=== PATIENT | female | born 1990 | race Caucasian/White ===

== ENCOUNTER → 2022-01-15 13:07 | Outpatient (CLI) | payer OTHER, SELFPAY ==
[2022-01-15 14:41] LABS: Add Manual Diff / Slide Review NO; Basophils Absolute Auto 0 /uL (0-100); Basophils Percent Auto 0.6 % (0-2); Eosinophils Absolute Auto 100 /uL (0-450); Eosinophils Percent Auto 0.9 % (2-4); Hematocrit 36.7 % (36-46); Hemoglobin 12.4 g/dL (12.0-16.0); Lymphocytes Absolute Auto 1400 /uL (1100-4500); Lymphocytes Percent Auto 22.7 % (25-40); Mean Corpuscular HGB Conc 33.7 % (30-36); Mean Corpuscular Hemoglobin 29.4 PG (26-34); Mean Corpuscular Volume 87.3 fL (80-100); Monocytes Absolute Auto 300 /uL (0-900); Monocytes Percent Auto 5.7 % (3-14); Neutrophils Absolute Auto 4300 /uL (1500-7000); Neutrophils Percent Auto 70.1 % (50-75); Platelet Count 166 X10^3/uL (150-400); Red Cell Distribution Width 12.3 % (11.6-14.8); White Blood Cell Count 6.1 X10^3/uL (4.5-11.0)
[2022-01-16 07:39] LABS: RPR Screen Non Reactive (Non Reactive); Varicella IgG Antibody 458 index (Immune >165)
[2022-01-17 19:24] LABS: HIV 1 & 2 Ab/Ag 4th Gen Combo NEGATIVE (NEGATIVE); Hep C Virus Ab w/Reflex Quant NEGATIVE s/c (NEGATIVE); Hepatitis B Surface Antigen NEGATIVE s/c (NEGATIVE)
== END ==
PROVIDERS: Referring Provider Obstetrics & Gynecology; Visit Provider Obstetrics & Gynecology
DX: Z34.81 Encounter for supervision of other normal pregnancy, first trimester (principal)
CPT/HCPCS: 36415; 80055; 86787; 86803; 86850; 86900; 86901; 87389

== ENCOUNTER → 2022-02-07 15:21 | Outpatient (CLI) | payer OTHER, SELFPAY ==
[2022-02-07 19:03] LABS: Appearance Urine UA CLEAR; Bilirubin Urine UA NEGATIVE (NEGATIVE); Color Urine UA YELLOW; Glucose Urine UA NEGATIVE (Negative); Ketones Urine UA NEGATIVE (NEGATIVE); Leukocyte Esterase Urine UA NEGATIVE (NEGATIVE); Nitrite Urine UA NEGATIVE (Negative); Occult Blood Urine UA NEGATIVE (Negative); Protein Urine UA NEGATIVE (Negative); Specific Gravity Urine UA 1.015 (1.000-1.035); Urobilinogen Urine UA 0.2 E.U./dL (0.2)
== END ==
PROVIDERS: Visit Provider Obstetrics & Gynecology
DX: Z34.81 Encounter for supervision of other normal pregnancy, first trimester (principal); Z3A.13 13 weeks gestation of pregnancy
CPT/HCPCS: 81003; 87086

== ENCOUNTER → 2022-03-04 14:28 | Outpatient (CLI) | payer OTHER, SELFPAY ==
[2022-03-04 21:35] LABS: Urine N gonorrhoeae NOT DETECTED
[2022-03-04 22:09] LABS: Urine Chlamydia NOT DETECTED
== END ==
PROVIDERS: Visit Provider Physician Assistant Medical
DX: Z34.82 Encounter for supervision of other normal pregnancy, second trimester (principal); Z3A.17 17 weeks gestation of pregnancy
CPT/HCPCS: 87491; 87591

== ENCOUNTER → 2022-03-05 09:27 | Outpatient (CLI) | payer OTHER, SELFPAY ==
[2022-03-07 20:44] LABS: Gest Age on Col Date 17.3 weeks (.); Insulin Dep Diabetes No (.); OSBR Risk 1IN 243 (.); Results Report (.); Test Results *Screen Positive* (.)
== END ==
PROVIDERS: Referring Provider Physician Assistant Medical; Visit Provider Physician Assistant Medical
DX: Z34.81 Encounter for supervision of other normal pregnancy, first trimester (principal)
CPT/HCPCS: 36415; 82105

== ENCOUNTER → 2022-04-03 14:07 | Outpatient (CLI) | payer OTHER, SELFPAY ==
--- NOTE | 2022-04-03 14:08 | DI.US.S_ITS ---
PROCEDURE: US OB >= 14 WEEKS FETUS INDICATIONS: ANATOMY OUTSIDE/PRIOR DATING DATA: Last menstrual period (LMP): 11/04/2021. LMP-based estimated date of delivery (RAMESH): 08/11/2022. First dating scan (date and location): 01/10/2022. Estimated date of delivery (RAMESH) from first dating scan: 08/09/2022. TECHNIQUE: Real-time scanning was performed of the fetus, with image documentation and biometric measurements. Endovaginal scanning: Not performed. COMPARISON: [facility], , OB <= 14 WEEKS FETUS, 02/07/2022, 15:36. [facility], , OB <= 14 WEEKS FETUS, 01/10/2022, 17:45. FINDINGS: General: A single living intrauterine gestation is present. Presentation: Transverse head to the right. Placenta: Placental position is posterior , without previa. Amniotic fluid index: 15.2 cm, normal range is 5-24 cm. Single deepest vertical pocket is 4.5 cm. heart rate: 147 beats per minute. Maternal cervical canal: 3.2 cm long. Normal lower limit is 2.5 cm. biometrics: Biparietal diameter: 21 weeks 5 days Head circumference: 21 weeks 5 days Abdominal circumference: 21 weeks 6 days Femur length: 22 weeks 4 days Clinically estimated gestational age: 21 weeks 5 days Composite gestational age from present scan: 22 weeks 0 day Estimated weight and percentile: 477 g; 66% Anatomic survey: Neuro: Ventricles are non-dilated at less than 10 mm. Cisterna magna is normal at 3-11 mm. Cerebellum is normal in size and morphology. Nuchal skin fold: Normal at less than 6 mm between 14-21 weeks gestational age. Face: Nose and lips, facial profile are normal. Spine: No evidence for spina bifida. Heart: 4-chambered heart is present, with normal ventricular outflow tracts. Diaphragm: Diaphragm is intact. Stomach: Left-sided stomach is present. Kidneys: No hydronephrosis. Normal is less than 5 mm in 2nd trimester, less than 7 mm in 3rd trimester. Cord: 3-vessel cord has orthotopic insertion. Bladder: Normal in size. Extremities: All 4 extremities identified. IMPRESSION: 1. A single living intrauterine gestation with appropriate interval growth. 2. Normal anatomic survey. We strive to produce accurate, complete, and clear reports of imaging services. To assist us in improving patient care, this report was composed using standard report templates and voice recognition software. Therefore, it may contain abnormal punctuation, insertions and/or omissions. Occasional wrong-word or sound-alike substitutions may occur. Though we review the report and make efforts to correct it, we do recommend that the report be read carefully in proper context to recognize any text inaccuracies. Dictated by: Dora Hoang M.D. on 04/03/2022 at 17:42 Approved by: Dora Hoang M.D. on 04/03/2022 at 17:45
== END ==
PROVIDERS: Referring Provider Obstetrics & Gynecology; Visit Provider Obstetrics & Gynecology
DX: Z34.82 Encounter for supervision of other normal pregnancy, second trimester (principal); Z3A.20 20 weeks gestation of pregnancy
CPT/HCPCS: 76811

== ENCOUNTER → 2022-05-07 13:09 | Outpatient (CLI) | payer OTHER, SELFPAY ==
[2022-05-07 15:36] LABS: Hematocrit 31.1 % (36-46); Hemoglobin 10.7 g/dL (12.0-16.0)
[2022-05-07 15:52] LABS: GTT (PREG) 1 Hour PP 50gm Dose 153 mg/dL (76-139)
== END ==
PROVIDERS: Referring Provider Obstetrics & Gynecology; Visit Provider Obstetrics & Gynecology
DX: Z34.82 Encounter for supervision of other normal pregnancy, second trimester (principal); Z3A.26 26 weeks gestation of pregnancy
CPT/HCPCS: 36415; 82950; 85014; 85018

== ENCOUNTER → 2022-05-13 08:34 | Outpatient (CLI) | payer OTHER, SELFPAY ==
[2022-05-13 11:05] LABS: Glucose Fasting Gestational 66 mg/dL (76-95)
[2022-05-13 12:26] LABS: Glucose Tol Interp,Gestational INTERPRETATION
[2022-05-13 12:45] LABS: Glucose 2 Hour Gest 152 mg/dL (76-155)
[2022-05-13 12:47] LABS: Glucose 1 Hour Gest 172 mg/dL (76-180)
[2022-05-13 13:43] LABS: Glucose 3 Hour Gest 132 mg/dL (76-140)
== END ==
PROVIDERS: Referring Provider Obstetrics & Gynecology; Visit Provider Obstetrics & Gynecology
DX: R73.09 Other abnormal glucose (principal)
CPT/HCPCS: 36415; 82951; 82952

== ENCOUNTER → 2022-05-29 09:00 | Outpatient (CLI) | payer OTHER, SELFPAY | PROVIDERS: Referring Provider Specialist; Visit Provider Specialist | DX: Z34.82 Encounter for supervision of other normal pregnancy, second trimester (principal); Z3A.26 26 weeks gestation of pregnancy | CPT/HCPCS: 36415; 86850; 86900; 86901 ==

== ENCOUNTER → 2022-07-17 10:59 | Outpatient (ROUT) | payer OTHER, SELFPAY ==
[2022-07-18 11:10] LABS: Strep Grp B PCR POS for Grp B Strep
== END ==
PROVIDERS: Visit Provider Obstetrics & Gynecology
DX: Z36.85 Encounter for antenatal screening for Streptococcus B (principal)
CPT/HCPCS: 87653

== ENCOUNTER 2022-08-08 14:52 | Observation (INO) | payer OTHER, SELFPAY | END 2022-08-08 18:13 | disposition home or self-care (01) | PROVIDERS: Admitting Provider Obstetrics & Gynecology; Referring Provider Obstetrics & Gynecology; Visit Provider Obstetrics & Gynecology | DX: O47.1 False labor at or after 37 completed weeks of gestation (principal); Z3A.39 39 weeks gestation of pregnancy | CPT/HCPCS: 59025; 84112; G0378; G0379 ==

== ENCOUNTER 2022-08-12 06:38 | Observation (INO) | payer OTHER, SELFPAY ==
[2022-08-12 08:45] LABS: Add Manual Diff / Slide Review NO; Basophils Absolute Auto 0 /uL (0-100); Basophils Percent Auto 0.2 % (0-2); Eosinophils Absolute Auto 100 /uL (0-450); Eosinophils Percent Auto 1.5 % (2-4); Hematocrit 34.6 % (36-46); Hemoglobin 11.6 g/dL (12.0-16.0); Lymphocytes Absolute Auto 1700 /uL (1100-4500); Lymphocytes Percent Auto 17.7 % (25-40); Mean Corpuscular HGB Conc 33.6 % (30-36); Mean Corpuscular Hemoglobin 30.4 PG (26-34); Mean Corpuscular Volume 90.5 fL (80-100); Monocytes Absolute Auto 700 /uL (0-900); Monocytes Percent Auto 7.4 % (3-14); Neutrophils Absolute Auto 7100 /uL (1500-7000); Neutrophils Percent Auto 73.2 % (50-75); Platelet Count 175 X10^3/uL (150-400); Red Blood Cell Count 3.82 X10^6/uL (4.0-5.2); Red Cell Distribution Width 13.8 % (11.6-14.8); White Blood Cell Count 9.7 X10^3/uL (4.5-11.0)
[2022-08-12 09:03] LABS: COVID19 -Nasal RAPID Negative (Negative)
[2022-08-12 09:56] VITALS: BP 110/63
[2022-08-12] MEDS: LACTATED RINGERS 1,000 ML 100 ML IV (10:24)
[2022-08-12] MEDS: PENICILLIN G POTASSIUM 5,000,000 UNIT in DEXTROSE 5% IN WATER 250 ML 250 UNIT IV (10:25)
== END 2022-08-12 13:10 | disposition home or self-care (01) ==
PROVIDERS: Admitting Provider Obstetrics & Gynecology; Referring Provider Obstetrics & Gynecology; Visit Provider Obstetrics & Gynecology
DX: O48.0 Post-term pregnancy (principal); Z3A.40 40 weeks gestation of pregnancy; Z20.822 Contact with and (suspected) exposure to COVID-19
CPT/HCPCS: 36415; 59025; 59050; 85025; 86850; 86900; 86901; 87635; 96360; C9803; G0378; G0379; J2540

== ENCOUNTER 2022-08-13 07:08 | Inpatient (IN) | payer OTHER, SELFPAY ==
[2022-08-13] MEDS: PENICILLIN G POTASSIUM 5,000,000 UNIT in DEXTROSE 5% IN WATER 250 ML 250 UNIT IV (10:46)
[2022-08-13] MEDS: LACTATED RINGERS 1,000 ML 100 ML IV (10:47)
[2022-08-13] MEDS: OXYTOCIN PREMIX 30 UNIT/500 ML PLAST..BAG IV (10:59)
--- NOTE | 2022-08-13 12:51 | P.HPOB_ITS ---
OB HPI Date/Time Date of admission: 08/13/22 Date Patient Seen: 08/13/22 Time Patient Seen: 13:40 History of Present Condition Chief complaint: INDUCTION OF LABOR RAMESH Calculator Estimated Delivery Date Method Current WG Current Estimate 08/11/22 LMP (Certain) 40w 2d Other Estimates 08/09/22 Ultrasound #1 40w 4d : 3 Para: 2 care: good care, initiated at week # (9), number of visits (12) and pounds weight gain (38) Dating criteria OB: LMP confirmed by 1st trimester US Ultrasounds: normal 1st trimester US and abnormal US findings (cleft palate) Obstetrical complications: none Medical complications OB: none Indications Indication for induction OB: maternal discomfort Preadmission Labs Last OB Lab Results: Blood Type A Negative 08/13/22 10:15 Antibody Screen Negative 08/13/22 10:15 Hematocrit 34.0 % (36-46) L 08/13/22 10:15 Hemoglobin 11.1 g/dL (12.0-16.0) L 08/13/22 10:15 Hepatitis B Surface Antigen Negative s/c (NEGATIVE) 01/15/22 13 :12 Hepatitis C Antibody Negative s/c (NEGATIVE) 01/15/22 13:12 Rubella Antibody 13.0 IU/mL (>15) L 01/15/22 13:12 Varicella-Zoster IgG Antibody 458 index (Immune >165) 01/15/22 13:12 Glucose 1 Hour 153 mg/dL (76-139) H 05/07/22 13:16 Group B Streptococcus (PCR) Pos for grp b strep H 07/17/22 11:3 4 -: Chlamydia screen: negative, Gonorrhea screen: negative and Urine: negative -: PAP smear: Normal Genetic Screens: Cell-free DNA: Normal (normal female) and Alpha-fetoprotein: Abnormal External Labs -: Urine: negative Prior (ies) Past Pregnancies Del. Date GA/Weeks Labor Lgth Wt Sex Route Outcome Anesthesia Place Delv Breastfeed Preg Comp Name 12/31/09 40 24 7 lb 9 oz Male vaginal live - full term [place] n/a other [place] 04/02/11 40 24 8 lb 9 oz Female vaginal live - full term [place], [place] 2 weeks shoulder dystocia other [place] Delivery Date: 12/31/09 Last Updated by: Blanca Sanches R.N. anemic, otherwise uncomplicated Delivery Date: 04/02/11 Last Updated by: Blanca Sanches R.N. Anemic, otherwise uncomplicated Evaluation Evaluation Baseline heart rate: 135 Variability: Moderate (11-25) monitor accelerations: Present Monitor Decelerations: Absent Dilation (cm): 5 Effacement (%): 90 station: -1 [facility] Medical History (Updated 07/23/22 @ 10:50 by Ysabel Camarena DO) Anemia affecting (~2009) Chicken pox (~1997) Dental bridge present Surgical History (Updated 02/06/22 @ 22:17 by Layla Velasco) History of dental surgery [place] teeth extracted Family History (Updated 02/06/22 @ 22:18 by Layla Velasco) Mother Hypertension Hyperlipidemia Father History of heart disease Hypertension Hyperlipidemia Brother Cyst Seizures Social History marital status: unmarried,living together number of children: 2 household members: significant other and children lives independently: Yes housing: house pets and animals: Yes (2 dogs and 1 cat, partner managing litter box) education level: college occupational status: employed current occupational exposures/hazards: No special faisal needs: No travel history: over 6 months ago seatbelt use: always helmet use: No water heater temp set < 120 deg: No (will check and adjust as needed) working smoke detector in home: Yes fire extinguisher in home: Yes carbon monox detector in home: Yes firearms in home: Yes firearms unloaded and locked: Yes do you feel safe at home: Yes Smoking Status: Never smoker second hand exposure: No alcohol intake: former substance use type: does not use during the past year weight has: increased > 10 lbs well-balanced diet: daily or most days daily servings fruits/ve-4 caffeine: Yes Type(s) of exercise: walking, resistance training and yoga frequency: 5-6 times per week Meds Home Medications and Allergies Home Medications Medication Instructions Recorded Confirmed Type prenat.vits,jina,xom-ecau-ztnjz 1 tab PO DAILY 12/18/21 08/13/22 History Allergies Allergy/AdvReac Type Severity Reaction Status Date / Time No Known Allergies Allergy Verified 08/07/22 14:16 OB Exam Narrative Exam Narrative: Generally: Patient comfortable with contractions. Lungs: Clear to auscultation bilaterally Cardiovascular: Regular rate and rhythm Fundal height: 41 cm EFW: 8-1/2 lb Extremities: 1+ edema Objective Labs Result Diagrams: 08/13/22 10:15 Labs: Laboratory Results - last 24 hr 08/13/22 10:15 Blood Type A Negative Antibody Screen Negative Assessment and Plan Assessment and Plan Assessment and Plan narrative: Assessment: 32-year-old 3 para 2 at 40-,2/7 weeks gestation for induction of labor GBS positive, status post 2 doses of antibiotics Plan: Artificial rupture membranes with copious clear amniotic fluid Epidural as necessary Expected management to spontaneous vaginal delivery Time Spent with Patient Total time spent with greater than 50% in coordination of care (as documented) at patient's floor/unit and/or counseling patient:: 25 - 35 minutes
[2022-08-13 12:56] LABS: COVID19 -Nasal RAPID Negative (Negative)
[2022-08-13 13:13] LABS: Add Manual Diff / Slide Review NO; Basophils Absolute Auto 0 /uL (0-100); Basophils Percent Auto 0.4 % (0-2); Eosinophils Absolute Auto 100 /uL (0-450); Eosinophils Percent Auto 1.2 % (2-4); Hemoglobin 11.1 g/dL (12.0-16.0); Lymphocytes Absolute Auto 1600 /uL (1100-4500); Lymphocytes Percent Auto 14.6 % (25-40); Mean Corpuscular HGB Conc 32.7 % (30-36); Mean Corpuscular Hemoglobin 29.8 PG (26-34); Mean Corpuscular Volume 91.3 fL (80-100); Monocytes Absolute Auto 700 /uL (0-900); Monocytes Percent Auto 6.6 % (3-14); Neutrophils Absolute Auto 8700 /uL (1500-7000); Neutrophils Percent Auto 77.2 % (50-75); Platelet Count 172 X10^3/uL (150-400); Red Blood Cell Count 3.73 X10^6/uL (4.0-5.2); Red Cell Distribution Width 14.6 % (11.6-14.8); White Blood Cell Count 11.2 X10^3/uL (4.5-11.0)
[2022-08-13] MEDS: FENT 2MCG/ML BUPIV 0.125% EPI 200 MCG/100 ML PLAST..BAG 7.5 MCG EPIDURAL (14:35)
[2022-08-13] MEDS: PENICILLIN G POTASSIUM 3,000,000 UNIT/50 ML FROZ.PIGGY 100 UNIT IV (14:56)
--- NOTE | 2022-08-13 18:56 | PM.OBPRVD ---
Events: Labor Induction Labor & Delivery Delivery date: 08/13/22 Cervical ripening method: none Induction method: per pitocin protocol Delivery augmentation: rupture of membranes Delivery monitor: external FHT and external uterine Route of delivery: Episiotomy description: None L&D Laceration Description: Perineal - 1st Degree, Vaginal - 1st Degree and Labial (bilat) Delivery repair: chromic Quantitative Blood Loss: 50 Anesthesia Type: Epidural and Local Complications: None Narrative: Patient complete and pushed for 10 minutes. At 5:51 p.m., a live female infant delivered spontaneously in the SHO presentation. No nuchal cord. A mild shoulder dystocia was relieved with Nicolas. was placed on mom's abdomen. The cord was double clamped and cut after sat pulsing. Cord bloods were obtained. Pitocin was given in the IV fluids. The placenta delivered intact with a three-vessel cord at 6:00 p.m.. A first-degree vaginal/perineal laceration was repaired with 2-0 chromic. Bilateral superficial labial lacerations were repaired with 2-0 chromic. Hemostasis was achieved. weight 9 lb 10 oz. Apgars 8 at 1 minute and 9 at 5 minutes. . Mom and infant stable to recovery. [place] Baby 1: Infant gender: Female Presentation: vertex Position: Left Occiput Anterior Placenta delivery description: Spontaneous Cord Vessel Description: 3 Vessels and Clamped/Cut score (1 min): 8 score (5 min): 9 weight: 9 lb 10 oz Plan for aftercare: Routine care
[2022-08-13] MEDS: LIDOCAINE 1% 20 ML (19:16)
[2022-08-13] MEDS: DERMOPLAST SPRAY 20% 60 ML 1 SPRAY TOP (20:37)
[2022-08-14 06:29] LABS: Hematocrit 34.5 % (36-46); Hemoglobin 11.5 g/dL (12.0-16.0)
[2022-08-14] MEDS: IBUPROFEN 600 MG TABLET PO ×2 (07:47→14:54)
[2022-08-14] MEDS: DOCUSATE 100 MG CAPSULE PO (09:07)
[2022-08-14] MEDS: ACETAMINOPHEN 325 MG TABLET 650 MG PO (11:30)
[2022-08-14] MEDS: RHO(D) IMMUNE GLOBULIN 1,500 UNIT SYRINGE 1500 UNIT IM (14:54)
== END 2022-08-14 17:45 | disposition home or self-care (01) | DRG 807 ==
PROVIDERS: Admitting Provider Obstetrics & Gynecology; Referring Provider Obstetrics & Gynecology; Visit Provider Obstetrics & Gynecology
DX: O99.824 Streptococcus B carrier state complicating childbirth (principal); Z37.0 Single live birth; O70.0 First degree perineal laceration during delivery; Z3A.40 40 weeks gestation of pregnancy; Z20.822 Contact with and (suspected) exposure to COVID-19
CPT/HCPCS: 36415; 59050; 59400; 85014; 85018; 85025; 85461; 86850; 86900; 86901; 87635; C9803; G0379; J2540; J2590; J2790

== ENCOUNTER → 2022-09-25 11:29 | Outpatient (CLI) | payer OTHER, SELFPAY ==
[2022-09-26 13:12] LABS: Candida species Negative (Negative); Gardnerella vaginalis Negative (Negative); Trichomoas vaginalis Negative (Negative)
== END ==
PROVIDERS: Visit Provider Obstetrics & Gynecology
DX: N89.8 Other specified noninflammatory disorders of vagina (principal)
CPT/HCPCS: 87480; 87510; 87660

== ENCOUNTER → 2023-12-03 15:10 | Outpatient (CLI) | payer OTHER, SELFPAY ==
[2023-12-03 16:14] LABS: Natera Collection Specimen Collected
[2023-12-03 16:33] LABS: Add Manual Diff / Slide Review NO; Basophils Absolute Auto 0 /uL (0-100); Basophils Percent Auto 0.4 % (0-2); Eosinophils Absolute Auto 100 /uL (0-450); Eosinophils Percent Auto 0.9 % (2-4); Hematocrit 35.3 % (36-46); Lymphocytes Absolute Auto 1800 /uL (1100-4500); Lymphocytes Percent Auto 27.2 % (25-40); Mean Corpuscular Hemoglobin 29.5 PG (26-34); Mean Corpuscular Volume 86.8 fL (80-100); Monocytes Absolute Auto 500 /uL (0-900); Monocytes Percent Auto 7.2 % (3-14); Neutrophils Absolute Auto 4200 /uL (1500-7000); Neutrophils Percent Auto 64.3 % (50-75); Platelet Count 167 X10^3/uL (150-400); Red Blood Cell Count 4.07 X10^6/uL (4.0-5.2); Red Cell Distribution Width 12.9 % (11.6-14.8); White Blood Cell Count 6.6 X10^3/uL (4.5-11.0)
[2023-12-03 20:53] LABS: Urine Chlamydia NOT DETECTED; Urine N gonorrhoeae NOT DETECTED
[2023-12-03 21:56] LABS: Hepatitis B Surface Antigen NEGATIVE s/c (NEGATIVE); Rubella Antibody IgG 55.2 IU/mL (>15)
[2023-12-03 22:21] LABS: HIV 1 & 2 Ab/Ag 4th Gen Combo NEGATIVE (NEGATIVE); Hep C Virus Ab w/Reflex Quant NEGATIVE s/c (NEGATIVE)
== END ==
PROVIDERS: Referring Provider Obstetrics & Gynecology; Visit Provider Obstetrics & Gynecology
DX: Z34.81 Encounter for supervision of other normal pregnancy, first trimester (principal); Z11.3 Encounter for screening for infections with a predominantly sexual mode of transmission; Z3A.10 10 weeks gestation of pregnancy
CPT/HCPCS: 36415; 80055; 86787; 86803; 86850; 86900; 86901; 87086; 87389; 87491; 87591

== ENCOUNTER → 2024-01-15 11:23 | Outpatient (CLI) | payer OTHER, SELFPAY ==
[2024-01-15 13:19] LABS: Platelet Count 158 X10^3/uL (150-400)
[2024-01-19 13:11] LABS: AFP Value 56.7 ng/mL (.); Gest Age on Col Date 1.1 weeks (.); Insulin Dep Diabetes No (.); OSBR Risk 1IN See interpretation. (.); Results Report (.); Test Results See interpretation. (.)
== END ==
PROVIDERS: Referring Provider Obstetrics & Gynecology; Visit Provider Obstetrics & Gynecology
DX: Z34.82 Encounter for supervision of other normal pregnancy, second trimester (principal); Z3A.16 16 weeks gestation of pregnancy
CPT/HCPCS: 36415; 82105; 85049

== ENCOUNTER → 2024-02-16 10:10 | Outpatient (CLI) | payer OTHER, SELFPAY ==
--- NOTE | 2024-02-16 10:10 | DI.US.S_ITS ---
PROCEDURE: US OB >= 14 WEEKS FETUS INDICATIONS: 20 week anatomy scan OUTSIDE/PRIOR DATING DATA: Last menstrual period (LMP): 09/24/2023. LMP-based estimated date of delivery (RAMESH): 06/30/2024. First dating scan (date and location): 12/03/2023. Estimated date of delivery (RAMESH) from first dating scan: 06/25/2024. The calculations are made using the working RAMESH of 06/30/2024. TECHNIQUE: Real-time scanning was performed of the fetus, with image documentation and biometric measurements. Endovaginal scanning: Not performed COMPARISON: [facility], , OB >= 14 WEEKS FETUS, 05/28/2022, 14:49. FINDINGS: General: A single living intrauterine gestation is present. Presentation: Breech. Placenta: Placental position is posterior , without previa. Amniotic fluid index: 13.4 cm, normal range is 5-24 cm. Single deepest vertical pocket is 5.3 cm. heart rate: 144 beats per minute. Maternal cervical canal: 3.7 cm long. Normal lower limit is 2.5 cm. biometrics: Biparietal diameter: 4.9 cm, 20 weeks 6 days Head circumference: 18.7 cm, 21 weeks 0 days Abdominal circumference: 16.4 cm, 21 weeks 3 days Femur length: 3.6 cm, 21 weeks 4 days Clinically estimated gestational age: 20 weeks 5 days Composite gestational age from present scan: 21 weeks 2 days Estimated weight and percentile: 424 g, 83rd percentile Anatomic survey: Neuro: Ventricles are non-dilated at less than 10 mm. Cisterna magna is normal at 3-11 mm. Cerebellum is normal in size and morphology. Nuchal skin fold: Normal at less than 6 mm between 14-21 weeks gestational age. Face: Nose and lips, facial profile are normal. Spine: No evidence for spina bifida. Heart: 4-chambered heart is present, with normal ventricular outflow tracts. Diaphragm: Diaphragm is intact. Stomach: Left-sided stomach is present. Kidneys: No hydronephrosis. Normal is less than 5 mm in 2nd trimester, less than 7 mm in 3rd trimester. Cord: 3-vessel cord has orthotopic insertion. Bladder: Normal in size. Extremities: All 4 extremities identified. IMPRESSION: 1. Living 2nd trimester intrauterine with no sonographic evidence of complications. 2. Normal interval growth. 3. Normal 2nd trimester anatomy study. We strive to produce accurate, complete, and clear reports of imaging services. To assist us in improving patient care, this report was composed using standard report templates and voice recognition software. Therefore, it may contain abnormal punctuation, insertions and/or omissions. Occasional wrong-word or sound-alike substitutions may occur. Though we review the report and make efforts to correct it, we do recommend that the report be read carefully in proper context to recognize any text inaccuracies. Dictated by: Elio Frey M.D. on 02/17/2024 at 14:33 Approved by: Elio Frey M.D. on 02/17/2024 at 14:40
== END ==
PROVIDERS: Referring Provider Obstetrics & Gynecology; Visit Provider Obstetrics & Gynecology
DX: Z34.82 Encounter for supervision of other normal pregnancy, second trimester (principal); Z3A.21 21 weeks gestation of pregnancy
CPT/HCPCS: 76811

== ENCOUNTER → 2024-03-19 10:01 | Outpatient (CLI) | payer OTHER, SELFPAY ==
[2024-03-19 11:27] LABS: Add Manual Diff / Slide Review NO; Basophils Absolute Auto 0 /uL (0-100); Basophils Percent Auto 0.2 % (0-2); Eosinophils Absolute Auto 100 /uL (0-450); Eosinophils Percent Auto 0.9 % (2-4); Hematocrit 30.5 % (36-46); Hemoglobin 10.7 g/dL (12.0-16.0); Lymphocytes Absolute Auto 1800 /uL (1100-4500); Lymphocytes Percent Auto 17.7 % (25-40); Mean Corpuscular Hemoglobin 30.5 PG (26-34); Mean Corpuscular Volume 87.1 fL (80-100); Monocytes Absolute Auto 600 /uL (0-900); Monocytes Percent Auto 5.8 % (3-14); Neutrophils Absolute Auto 7600 /uL (1500-7000); Neutrophils Percent Auto 75.4 % (50-75); Platelet Count 192 X10^3/uL (150-400); Red Cell Distribution Width 13.6 % (11.6-14.8); White Blood Cell Count 10.1 X10^3/uL (4.5-11.0)
[2024-03-19 11:42] LABS: GTT (PREG) 1 Hour PP 50gm Dose 127 mg/dL (76-139)
== END ==
LOC: LAB 10:02
PROVIDERS: Referring Provider Obstetrics & Gynecology; Visit Provider Obstetrics & Gynecology
DX: Z34.82 Encounter for supervision of other normal pregnancy, second trimester (principal); D64.9 Anemia, unspecified; Z3A.26 26 weeks gestation of pregnancy
CPT/HCPCS: 36415; 82950; 85025; 86850

== ENCOUNTER → 2024-05-27 11:01 | Outpatient (CLI) | payer OTHER, SELFPAY ==
[2024-05-27 12:25] LABS: Add Manual Diff / Slide Review NO; Basophils Absolute Auto 0 /uL (0-100); Basophils Percent Auto 0.4 % (0-2); Eosinophils Absolute Auto 200 /uL (0-450); Eosinophils Percent Auto 1.5 % (2-4); Hematocrit 34.1 % (36-46); Hemoglobin 11.4 g/dL (12.0-16.0); Lymphocytes Absolute Auto 2200 /uL (1100-4500); Lymphocytes Percent Auto 17.9 % (25-40); Mean Corpuscular HGB Conc 33.6 % (30-36); Mean Corpuscular Hemoglobin 30.7 PG (26-34); Mean Corpuscular Volume 91.5 fL (80-100); Monocytes Absolute Auto 900 /uL (0-900); Monocytes Percent Auto 7.6 % (3-14); Neutrophils Absolute Auto 8800 /uL (1500-7000); Neutrophils Percent Auto 72.6 % (50-75); Platelet Count 194 X10^3/uL (150-400); Red Blood Cell Count 3.73 X10^6/uL (4.0-5.2); Red Cell Distribution Width 14.2 % (11.6-14.8); White Blood Cell Count 12.1 X10^3/uL (4.5-11.0)
== END ==
PROVIDERS: Referring Provider Specialist; Visit Provider Specialist
DX: O09.513 Supervision of elderly primigravida, third trimester (principal); D69.6 Thrombocytopenia, unspecified; D64.9 Anemia, unspecified; Z3A.35 35 weeks gestation of pregnancy
CPT/HCPCS: 36415; 85025

== ENCOUNTER → 2024-06-09 09:30 | Outpatient (CLI) | payer OTHER, SELFPAY ==
[2024-06-10 10:56] LABS: Strep Grp B PCR POS for Grp B Strep
== END ==
PROVIDERS: Visit Provider Obstetrics & Gynecology
DX: Z34.83 Encounter for supervision of other normal pregnancy, third trimester (principal); Z3A.37 37 weeks gestation of pregnancy
CPT/HCPCS: 87653

== ENCOUNTER 2024-06-25 06:58 | Inpatient (IN) | payer OTHER, SELFPAY ==
[2024-06-25] MEDS: LACTATED RINGERS 1,000 ML 100 ML IV (07:54)
[2024-06-25] MEDS: OXYTOCIN PREMIX 30 UNIT/500 ML PLAST..BAG IV (07:54)
[2024-06-25 08:06] LABS: Add Manual Diff / Slide Review NO; Basophils Absolute Auto 0 /uL (0-100); Basophils Percent Auto 0.3 % (0-2); Eosinophils Absolute Auto 100 /uL (0-450); Eosinophils Percent Auto 1.5 % (2-4); Hematocrit 36.3 % (36-46); Hemoglobin 12.4 g/dL (12.0-16.0); Lymphocytes Absolute Auto 1800 /uL (1100-4500); Lymphocytes Percent Auto 17.6 % (25-40); Mean Corpuscular HGB Conc 34.2 % (30-36); Mean Corpuscular Volume 90.7 fL (80-100); Monocytes Absolute Auto 800 /uL (0-900); Monocytes Percent Auto 8.3 % (3-14); Neutrophils Absolute Auto 7200 /uL (1500-7000); Neutrophils Percent Auto 72.3 % (50-75); Platelet Count 188 X10^3/uL (150-400); Red Cell Distribution Width 13.8 % (11.6-14.8)
[2024-06-25 08:20] VITALS: BP 112/67
[2024-06-25] MEDS: AMPICILLIN 2,000 MG in SODIUM CHLORIDE 0.9% 100 ML 200 MG IV (09:03)
[2024-06-25] MEDS: AMPICILLIN 1,000 MG in SODIUM CHLORIDE 0.9% 100 ML 200 MG IV (12:01)
--- NOTE | 2024-06-25 13:17 | PM.OBHP.IH.1 ---
OB HPI Date/Time Date of admission: 06/25/24 Date Patient Seen: 06/25/24 Time Patient Seen: 12:50 History of Present Condition Chief complaint: INDUCTION RAMESH Calculator Estimated Delivery Date Method Current WG Current Estimate 06/30/24 LMP (Uncertain) 39w 2d Other Estimates 06/25/24 Ultrasound #1 40w 0d Estimated Gestational Age (weeks): 39.2 : 4 Para: 3 care: good care, initiated at week # (10), number of visits (11) and pounds weight gain (39) Dating criteria OB: LMP confirmed by 1st trimester US Ultrasounds: normal 1st trimester US and normal mid trimester US Obstetrical complications: other (Low platelets) Medical complications OB: none Indications Indication for induction OB: other (AMA) Preadmission Labs Last OB Lab Results: Blood Type A Negative 06/25/24 07:38 Antibody Screen Negative 06/25/24 07:38 Hct 36.3 % (36-46) 06/25/24 07:38 Hgb 12.4 g/dL (12.0-16.0) 06/25/24 07:38 Hep Bs Antigen Negative s/c (NEGATIVE) 12/03/23 15:14 Hepatitis C Antibody Negative s/c (NEGATIVE) 12/03/23 15:14 Rubella Antibody 55.2 IU/mL (>15) 12/03/23 15:14 VZV IgG Antibody 444 index (Immune >165) 12/03/23 15:14 Glucose 1 Hr 50 gm 127 mg/dL (76-139) 03/19/24 11:13 Group B Strep (PCR) Pos for grp b strep H 06/09/24 09:30 -: Chlamydia screen: negative, Gonorrhea screen: negative and Urine: negative -: PAP smear: Normal Genetic Screens: Cell-free DNA: Normal (Normal female) and Alpha-fetoprotein: Normal External Labs -: Urine: negative Prior (ies) Past Pregnancies Del. Date GA/Weeks Labor Lgth Wt Sex Route Outcome Anesthesia Place Delv Breastfeed Preg Comp Name 12/31/09 40 24 7 lb 9 oz Male vaginal live - full term [place] ID n/a other [place] 04/02/11 40 24 8 lb 9 oz Female vaginal live - full term [place], [place] 2 weeks shoulder dystocia other [place] 08/13/22 40.2 4 9 lb 10.3 oz Female vaginal live - full term [facility] 3-4 weeks none [place] Delivery Date: 12/31/09 Last Updated by: Blanca Sanches R.N. anemic, otherwise uncomplicated Delivery Date: 04/02/11 Last Updated by: Blanca Sanches R.N. Anemic, otherwise uncomplicated Delivery Date: 08/13/22 Last Updated by: Savi Gonzalez MD Mild shoulder dystocia Thought to have cleft palate prior to delivery, but none seen at delivery Evaluation Evaluation Baseline heart rate: 140 Variability: Moderate (11-25) monitor accelerations: Present Monitor Decelerations: Absent Contraction Frequency (minutes): 3 Uterine Contraction Intensity: Mild Status: Category l Dilation (cm): 3 Effacement (%): 85 station: -1 Position of cervix: anterior Consistency: soft Comments: Pitocin at [address] [facility] Medical History (Updated 05/27/24 @ 11:00 by Alena Gale MD) Encounter for counseling Chicken pox (~1997) Dental bridge present Anemia affecting (~2009) Surgical History (Updated 02/06/22 @ 22:17 by Layla Velasco) History of dental surgery [place] teeth extracted Family History (Updated 11/18/23 @ 14:37 by Blanca Sanches RN) Mother Hypertension Hyperlipidemia Father History of heart disease Hypertension Hyperlipidemia COPD (chronic obstructive pulmonary disease) Brother Cyst Seizures Grandmother Lung cancer Smoker Social History marital status: number of children: 3 (2 oldest children live with their father) household members: spouse and children lives independently: Yes caregiver/support person: Yes housing: house pets and animals: No education level: college (Associate's degree) 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) current occupational exposures/hazards: No special faisal needs: No travel history: recent (domestic only) seatbelt use: always helmet use: No water heater temp set < 120 deg: No (will check and adjust as needed) working smoke detector in home: Yes fire extinguisher in home: Yes carbon monox detector in home: Yes firearms in home: Yes firearms unloaded and locked: Yes do you feel safe at home: Yes Smoking Status: Never smoker second hand exposure: No alcohol intake: former substance use type: does not use during the past year weight has: other (back to ~pre- weight) well-balanced diet: daily or most days daily servings fruits/ve-1 (~) caffeine: Yes (2 cups coffee) Type(s) of exercise: walking frequency: 5-6 times per week Meds Home Medications and Allergies Home Medications Medication Instructions Recorded Confirmed Type prenat.vits,jina,gtm-xuny-cuynl 1 tab PO DAILY 12/18/21 06/25/24 History Allergies Allergy/AdvReac Type Severity Reaction Status Date / Time No Known Allergies Allergy Verified 06/23/24 11:35 OB Exam Narrative Exam Narrative: Generally: Patient sitting up in bed, no acute distress Lungs: Clear to auscultation bilaterally Cardiovascular: Regular rate and rhythm Extremities: 1+ edema, significant lower extremity varicosities Estimated weight: 8-1/2 lb Objective Labs 06/25/24 07:38 Labs: Laboratory Results - last 24 hr 06/25/24 07:38 WBC 10.0 RBC 4.00 Hgb 12.4 Hct 36.3 MCV 90.7 MCH 31.0 MCHC 34.2 RDW 13.8 Plt Count 188 Neut % (Auto) 72.3 Lymph % (Auto) 17.6 L [place] % (Auto) 8.3 Eos % (Auto) 1.5 L Baso % (Auto) 0.3 Neut # (Auto) 7200 H Lymph # (Auto) 1800 [place] # (Auto) 800 Eos # (Auto) 100 Baso # (Auto) 0 Blood Type A Negative Antibody Screen Negative Assessment and Plan Assessment and Plan Assessment and Plan narrative: Assessment: 34-year-old 4 para 3 at 39-,2/7 weeks gestation for an induction of labor due to advanced maternal age and history of large babies and fast labors Pitocin at 14 janice IU Desires epidural Group B strep positive, status post 2 doses of antibiotics Plan: AROM with clear amniotic fluid Epidural as necessary Expected management to spontaneous vaginal delivery Time-Based Coding :: [TOTAL MINUTES] spent with patient and on the chart (including review of chart, obtaining history, exam, reviewing outside data, placing orders, documenting exam and treatment plan, and counseling patient) on [DATE].
[2024-06-25] MEDS: FENT 2MCG/ML BUPIV 0.125% EPI 200 MCG/100 ML PLAST..BAG 6 MCG EPIDURAL (15:35)
--- NOTE | 2024-06-25 15:43 | PM.AN.REGBLK ---
Regional Block Pre-procedure Procedure: Continuous Lumbar Epidural for L&D Attending OB provider: Savi Gonzalez PMH/ROS narrative: term IOL for AMA. ASA Class: II Labs: Hct 36.3 % (36-46) 06/25/24 07:38 Plt Count 188 X10^3/uL (150-400) 06/25/24 07:38 Medications: Current Medications Generic Name Dose Route Start Last Admin Trade Name Freq PRN Reason Stop Dose Admin Calcium Carbonate 1,000 mg 06/25/24 07:09 Calcium Carbonate 500 Mg Tab PO Q2HR PRN Dyspepsia Carboprost Tromethamine 250 mcg 06/25/24 07:09 Carboprost 250 Mcg/Ml Ampul IM Q90M PRN Bleeding Diphenhydramine HCl 25 mg 06/25/24 14:54 Diphenhydramine 50 Mg/Ml Vial IV Q10M PRN Pruritis Fentanyl 50 mcg 06/25/24 07:09 Fentanyl 100 Mcg/2 Ml Inj IV Q1H PRN Pain, Moderate (4-6) Oxytocin/Lactated Ringer's 30 unit in 500 mls @ 2 mls/hr 06/25/24 07:15 06/25/24 07:54 Oxytocin Premix IV 2 milliunit/min TITRATE KATHLEEN 2 mls/hr Administration Protocol 2 MILLIUNIT/MIN Ampicillin Sodium 1,000 mg/ 100 mls @ 200 mls/hr 06/25/24 11:00 06/25/24 12:01 Sodium Chloride IV 200 mls/hr Q4H KATHLEEN Administration Lactated Ringer's 1,000 mls @ 100 mls/hr 06/25/24 07:15 06/25/24 07:54 Lactated Ringers IV 06/25/24 17:14 100 mls/hr CONT KATHLEEN Administration Oxytocin/Lactated Ringer's 30 unit in 500 mls @ 200 mls/hr 06/25/24 07:09 Oxytocin Premix IV CONT PRN Bleeding Protocol Tranexamic Acid 1,000 mg/ 100 mls @ 600 mls/hr 06/25/24 07:09 Sodium Chloride IV NOW PRN Bleeding FENT 2MCG/ML BUPIV 0.125% EPI 200 mcg in 100 mls @ 6 mls/hr 06/25/24 15:00 06/25/24 15:35 Fentanyl/Bupiv/Ns 2mcg/Ml - 0.125% EPIDURAL 6 mls/hr CONT KATHLEEN Administration Lidocaine HCl 20 ml 06/25/24 07:09 Lidocaine 1% 20 Ml INJ INTRA-OP PRN Post Delivery Methylergonovine Maleate 0.2 mg 06/25/24 07:09 Methylergonovine 0.2 Mg/Ml Vial IM NOW PRN Bleeding Methylergonovine Maleate 0.2 mg 06/25/24 07:09 Methylergonovine 0.2 Mg Tablet PO Q6HR PRN Heavy Bleeding Mineral Oil 30 ml 06/25/24 07:09 Mineral Oil 30 Ml Udc TOP PRN PRN Version Misoprostol 400 mcg 06/25/24 07:09 Misoprostol 200 Mcg Tablet SL NOW PRN Bleeding Misoprostol 800 mcg 06/25/24 07:09 Misoprostol 200 Mcg Tablet UT NOW PRN Bleeding Nalbuphine HCl 2.5 mg 06/25/24 14:54 Nalbuphine 20 Mg/Ml Ampul IV Q10M PRN Pruritis Naloxone HCl 0.2 mg 06/25/24 07:09 Naloxone 0.4 Mg/Ml Vial IV Q2MIN PRN Opiate Reversal Ondansetron HCl 4 mg 06/25/24 07:09 Ondansetron 4 Mg/2 Ml Inj IV Q4HR PRN Nausea And Vomiting Oxytocin 10 unit 06/25/24 07:09 Oxytocin 10 Unit/Ml Vial IM NOW PRN Bleeding Allergies: Allergies Allergy/AdvReac Type Severity Reaction Status Date / Time No Known Allergies Allergy Verified 06/23/24 11:35 Procedure Insertion date: 06/25/24 Insertion time: 15:20 Prep/Local: betadine x3 and 1% lidocaine Interspace: L34 Patient position: sitting Needle: 18 gauge Hustead (CSE: 27g Pencan through Hustead, clear CSF, 1mL 0.25% bupiv MPF) Loss of resistance with: saline GERA at (cm): 5 Catheter placed at SKIN (cm): 10 Catheter in SPACE (cm): 5 Insertion: No CSF, No Blood, No Paresthesia with insertion, No Paresthesia with injection and No Test dose reaction Initial Medications TEST DOSE time: 15:22 TEST DOSE: 1.5% lidocaine with epinephrine 1:200k (mL): 3 BOLUS DOSE time: 15:35 BOLUS DOSE (mL): 4 BOLUS DOSE med: other (infusate) Infusion INFUSION: 0.125% bupivacaine and with fentanyl 2 mcg/mL Initial rate (mL/hr): 10 Post-procedure Anesthesia date START: 06/25/24 Anesthesia time START: 15:10 Anesthesia date END: 06/25/24 Anesthesia time END: 16:58 Post-procedure Anesthesia Assessment: Yes CV function: HR/BP stable, Yes Resp function: RR/sat/airway adequate, Yes Post-op hydration adequate, Yes Pain control adequate, Yes Nausea & vomiting absent, Yes Temperature > 36 C, Yes Mental status appropriate and No Anesthesia complications
--- NOTE | 2024-06-25 17:08 | PM.OBPRVD ---
Events: Labor Induction Labor & Delivery Delivery date: 06/25/24 Delivery Time: 16:39 Intrapartal Events: None Cervical ripening method: none Induction method: per pitocin protocol Delivery augmentation: rupture of membranes Delivery monitor: external FHT and external uterine Route of delivery: Episiotomy description: None L&D Laceration Description: None Quantitative Blood Loss: 177 Anesthesia Type: Epidural Complications: None Narrative: Patient complete and pushed x 20min. At 16:39, a live female infant delivered spontaneously over an intact perineum. A shoulder cord x1 reduced on the perineum. The remainder of the body delivered without difficulty over an intact perineum. Pitocin was given in the IVF's. The cord was double clamped and cut after the cord stopped pulsing. Cord bloods were obtained. The placenta delivered intact with a 3 vessel cord at 16:46. The fundus was massaged to firm. The vagina and perineum were inspected and there were no lacerations. Apgars 8 at 1 minute and 9 at 5 minutes. Epidural analgesia. BW: 8# 7.9oz . Mom and infant stable to recovery. [place] Baby 1: Infant gender: Female Presentation: vertex Position: Left Occiput Anterior Placenta delivery description: Spontaneous Cord Vessel Description: 3 Vessels, Clamped/Cut (after cord stopped pulsing) and Around Body x1 score (1 min): 8 score (5 min): 9 weight: 8 lb 7.9 oz Plan for aftercare: Routine care
[2024-06-25] MEDS: WITCH HAZEL/GLYCERIN PADS 1 EACH TOP (22:53)
[2024-06-25] MEDS: DERMOPLAST SPRAY 20% 60 ML 1 SPRAY TOP (22:53)
[2024-06-25] MEDS: IBUPROFEN 600 MG TABLET PO (22:53)
[2024-06-25] MEDS: ACETAMINOPHEN 325 MG TABLET 650 MG PO (22:53)
[2024-06-26] MEDS: ACETAMINOPHEN 325 MG TABLET 650 MG PO (06:33)
[2024-06-26] MEDS: IBUPROFEN 600 MG TABLET PO (06:33)
[2024-06-26] MEDS: RHO(D) IMMUNE GLOBULIN 1,500 UNIT SYRINGE 1500 UNIT IM (10:22)
[2024-06-26 10:43] VITALS: BP 114/72; PULSE 65; RESP 16; TEMP 37.4
--- NOTE | 2024-06-27 18:52 | PM.OBDS.1 ---
Discharge Providers Provider Date of admission: 06/25/24 06:58 Discharge Date: 06/26/24 Primary care physician: Diony Jordan MD Consults: 06/25/24 07:09 Consult to Anesthesiology Urgent Comment: Consulting Provider: Anesthesiologist Reason for consultation: Epidural Has provider been notified: No Discharge provider: Savi Gonzalez MD Summary Hospital Course Date Patient Seen: 06/26/24 Time Patient Seen: 09:15 Diagnoses: 39 +2 wks gestation H/O LGA baby with a shoulder dystocia Advanced maternal age GBS + Hospital Course: Patient is a 34 year old who presented on 06/25/24 for a scheduled induction of labor. She was started on Pitocin. She received 2 doses of antibiotics for GBS prophylaxis. AROM was performed for clear amniotic fluid. She received an epidural for pain management. She progressed to complete dilation and had an without complication. No lacerations. Her course was unremarkable and she was discharged to home on 06/26/24. Peripartum Data Infant Delivery Method: Natural Vaginal Laceration Description: None Episiotomy description: None Procedures: Induction of labor with Pitocin GBS antibiotic prophylaxis Artificial rupture of membranes Epidural analgesia Spontaneous vaginal delivery complications: none 1: Gender: Female Disposition of : home Status at Discharge Cognitive/behavioral status at discharge: oriented Functional status at discharge: independent ambulation Overall status at discharge: patient is progressing back to baseline Time Spent with Patient Time attestation: Total time spent providing and/or coordinating discharge services: Time spent: Less than 30 minutes Objective Labs 06/25/24 07:38 Labs: Laboratory Results - last 24 hr 06/26/24 06:10 KB Hemoglobin Cancelled Exam Narrative Exam Narrative: Gen: Sitting up in bed, , NAD Fundus: Firm U/-1 Ext: 1+ edema, negative Domitila's Discharge Plan Discharge Plan Patient Disposition: Home Provider Discharge Comment: Call with fever, chills or bleeding vaginally more than a pad in an hour Ibuprofen 600mg every 6 hours as needed for cramping Push oral fluids Continue vitamins Discharge orders & Medications Prescriptions: Continued prenat.vits,jina,fla-[id number]-wjuyc Tablet 1 tab PO DAILY Follow up/Referrals: Savi Gonzalez MD [Physician] - (My office will call on Friday to schedule 6 wk PP visit with [facility]) Diet/Activity/Treatments Diet: Regular Activity: Nothing in the vagina until after 6 wk visit Skin/Wound/Dressing Care Report to your healthcare provider any signs of infection, such as:: chills, fever, increased pain and unusual drainage Visit Report/Discharge Packet Instructions: DI for Labor and Delivery, Vaginal Stand Alone Forms: Discharge: Care, Patient Portal/API, Stroke Signs & Symptoms Discharge Data Primary Care Provider: Diony Jordan
== END 2024-06-26 13:10 | disposition home or self-care (01) | DRG 807 ==
PROVIDERS: Admitting Provider Obstetrics & Gynecology; PCP Student in an Organized Health Care Education/Training Program; Referring Provider Obstetrics & Gynecology; Visit Provider Obstetrics & Gynecology
DX: O99.824 Streptococcus B carrier state complicating childbirth (principal); Z37.0 Single live birth; Z3A.40 40 weeks gestation of pregnancy
CPT/HCPCS: 36415; 59050; 59400; 85025; 85460; 85461; 86850; 86900; 86901; G0379; J0290; J2590; J2790